=== PATIENT | male | born 1980 | race Hispanic/Latino ===

== ENCOUNTER 2023-01-24 17:51 | Emergency (ER) | payer OTHER ==
[~2023-01-24] VITALS: Ht 182.9 cm; Wt 165.6 kg
[2023-01-24 17:59] VITALS: BP 148/94
[2023-01-24] MEDS ORDERED: HYDR-3421 PO (19:40)
[2023-01-24] MEDS ORDERED: LACT20PA6 PO (19:40)
== END 2023-01-24 20:23 | disposition home or self-care (01) ==
LOC: EDH 17:51
DX: K59.00 Constipation, unspecified (principal); G47.00 Insomnia, unspecified; F41.9 Anxiety disorder, unspecified

== ENCOUNTER 2023-10-11 23:55 | Emergency (ER) | payer OTHER ==
[~2023-10-11] VITALS: Ht 182.9 cm; Wt 167.8 kg
[~2023-10-11 23:55] MED LIST: HYDR-3421 PO; LACT20PA6 PO
[2023-10-12 00:02] VITALS: BP 170/93; PULSE 87; RESP 20; O2SAT 95
== END 2023-10-12 04:41 | disposition left against medical advice (07) ==
LOC: EDH 23:55
DX: M54.50 Low back pain, unspecified (principal); Z53.21 Procedure and treatment not carried out due to patient leaving prior to being seen by health care provider
CPT/HCPCS: 99281

== ENCOUNTER 2024-04-01 13:43 | Emergency (ER) | payer OTHER ==
[~2024-04-01] VITALS: Ht 182.9 cm; Wt 175.5 kg
[2024-04-01 13:49] VITALS: BP 138/81; PULSE 120; RESP 20
[2024-04-01] MEDS ORDERED: KETO10TA2 PO (15:04)
== END 2024-04-01 16:25 | disposition home or self-care (01) ==
LOC: EDH 13:43
DX: S80.02XA Contusion of left knee, initial encounter (principal); W01.10XA Fall on same level from slipping, tripping and stumbling with subsequent striking against unspecified object, initial encounter; Y93.89 Activity, other specified; Y92.89 Other specified places as the place of occurrence of the external cause; Y99.8 Other external cause status
CPT/HCPCS: 73562

== ENCOUNTER 2025-03-24 22:22 | Emergency (ER) | payer BC ==
[~2025-03-24] VITALS: Ht 182.9 cm; Wt 175.5 kg
[~2025-03-24 22:22] MED LIST changes: +KETO10TA2 PO
[2025-03-24] MEDS: ceFAZolin SODIUM 1 GM VIAL IVPB ONE (23:16)
[2025-03-24] MEDS: teTANUS/diphthERIA TOXOID [ADULT] 0.5 ML VIAL IM ONE (23:18)
[2025-03-25] MEDS ORDERED: CEPH500B PO (00:14)
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
[2025-03-25 00:30] VITALS: BP 144/72; PULSE 97; RESP 12; TEMP 98; O2SAT 97
--- NOTE | 2025-03-25 02:02 | HMCIMG ---
FOREARM 2VWS LT HISTORY: Foreign body COMPARISON: None TECHNIQUE: 2 images of the left forearm were obtained. FINDINGS: Radiopaque densities are noted around the proximal forearm may be related to bandage/gauze. No other radiopaque foreign body is seen. There is no acute displaced fracture or dislocation. Degenerative changes are seen. IMPRESSION: 1. Findings as described above.
== END 2025-03-25 00:34 | disposition home or self-care (01) ==
LOC: EDH 22:22
DX: S51.812A Laceration without foreign body of left forearm, initial encounter (principal); W22.8XXA Striking against or struck by other objects, initial encounter; Y93.89 Activity, other specified; Y92.89 Other specified places as the place of occurrence of the external cause; Y99.8 Other external cause status
CPT/HCPCS: 99284; 96365; 90714; 73090; 90471; 12002; J0690